=== PATIENT | male | born 1970 | race Caucasian/White ===

== ENCOUNTER 2021-05-15 12:16 | Emergency (ER) | payer SELFPAY ==
[~2021-05-15] VITALS: Ht 188 cm; Wt 131.0 kg
[2021-05-15] MEDS ORDERED: IV NORMAL SALINE 1,000ML 1,000 ML IV ONE (12:30)
[2021-05-15] MEDS ORDERED: ONDANSETRON PF 4 MG/2 ML VIAL. IVP ONE (12:30)
--- NOTE | 2021-05-15 12:34 | PHYS DOC ---
General Adult EDM: Chief Complaint: LOWER EXT PAIN HPI: HPI: Patient is a 50-year-old male being seen in the ER by EMS for left ankle pain. Patient states that he fell from standing and twisted his left ankle 10 days ago. He has a [employer] that checks up on him and gave him an ankle brace and crutches. Patient states that the [employer] checked on him today and thought that he should be evaluated for his ankle pain. Patient denies any decreased range of motion or decreased sensation to this extremity. Patient has poor hygiene and has brown splatter on his shirt and shorts. Patient states that he thought he got food poisoning yesterday because he had nausea and vomiting. He states that those symptoms have resolved today. He denies any blood in his stools or vomit, diarrhea, fevers, abdominal pain. Patient denies any current pain. He states that he has been taking ibuprofen at home for his ankle pain. Patient has poor hygiene. He is also a poor historian. Patient has a significant psychiatric history states he is not taking his medications. Pat ient denies any suicidal or homicidal ideation (INDIRA ELLIS APRN) Review of Systems: Review of Systems: 14 body systems of the review of systems have been reviewed. See HPI for pertinent positive and negative responses, otherwise all other systems are negative, nonpertinent or noncontributory (INDIRA ELLIS APRN) Physical Exam: PE: Constitutional: Well developed, well nourished, no acute distress, non-toxic appearance. [] HENT: Normocephalic, atraumatic, bilateral external ears normal, oropharynx moist, no oral exudates, nose normal. [] Eyes: PERRLA, EOMI, conjunctiva normal, no discharge. [] Neck: Normal range of motion, no tenderness, supple, no stridor. [] Cardiovascular:Heart rate regular rhythm, no murmur [] Lungs & Thorax: Bilateral breath sounds clear to auscultation [] Abdomen: Bowel sounds normal, soft, no tenderness, no masses, no pulsatile masses. [] Skin: Warm, dry, no erythema, no rash. [] Back: No tenderness, no CVA tenderness. [] Extremities: No tenderness, no cyanosis, no clubbing, ROM intact, no edema. [] Neurologic: Alert and oriented X 3, normal motor function, normal sensory function, no focal deficits noted. [] Psychologic: Affect normal, judgement normal, mood normal. [] (INDIRA ELLIS APRN) EKG: EKG: EKG performed by ER staff at 1339 shows sinus tach at a rate of 118, no STEMI read by Dr. Zuniga at 1359. [] (INDIRA ELLIS APRN) Radiology/Procedures: Radiology/Procedures: PROCEDURE: ANKLE LEFT 3V Left ankle 3 views. HISTORY: Fall, bruising through ankle 3 views were taken of the left ankle. There is not evidence of an acute fracture or osseous abnormality. There is prominent spurring on the calcaneus. IMPRESSION: 1. No acute fracture noted in the left ankle. Electronically signed by: Vadim Beltrán MD (05/15/2021 12:49 PM) [id number] DICTATED AND SIGNED BY: VADIM BELTRÁN MD DATE: 05/15/21 1248 CC: INDIRA ELLIS APRN ~MTH0 0 [] (INDIRA ELLIS APRN) Impressions: [place] [address] IMAGING REPORT Signed PATIENT: DANY GARRIDO ACCOUNT: [id number] : 1970 LOCATION: ER AGE: 50 SEX: M EXAM STATUS: PRE ER ORD. PHYSICIAN: INDIRA ELLIS APRN REASON: leukocytosis, n/v, coffee ground emesis - omni 300 75ml iv PROCEDURE: CT ABD PELV W/ IV CONTRST ONLY CT abdomen and pelvis with contrast PQRS statement: CT scans at this facility use dose reduction including either automated exposure control, iterative reconstructions, and /or weight based radiation dosing via mA and kV modification when appropriate to reduce radiation dose to as low as reasonably achievable. HISTORY: Leukocytosis, nausea and vomiting, coffee-ground emesis. Contrast: 75 mL of opaque 300 intravenous contrast. Abdomen findings: Tiny dependent pleural effusions. Tiny liver dome is outside [id number]. There is gallbladder distention and gallbladder wall edema and surrounding pericholecystic edema extending into the leland hepatis as well as surrounding the hepatic flexure and descending duodenum consistent with cholecystitis. Kidneys, adrenals, liver, pancreas, spleen unremarkable. Appendix is negative. No bowel obstruction. No adenopathy. Bones are unremarkable. Pelvis findings: Miniscule volume of dependent pelvic free fluid. Bladder, prostate, rectum and bones are unremarkable. IMPRESSION: 1. Acute cholecystitis with distention and edema of the gallbladder. 2. The appendix is negative. 3. Tiny dependent bilateral pleural effusions at the lung bases. Electronically signed by: Alvarez Horton MD (05/15/2021 3:02 PM) [facility] DICTATED AND SIGNED BY: ALVAREZ HORTON MD DATE: 05/15/21 1457 CC: DANY ZUNIGA MD; INDIRA ELLIS APRN ~MTH0 0 (DANY ZUNIGA MD) Heart Score: C/O Chest Pain: No Risk Factors: Risk Factors: DM, Current or recent (<one month) smoker, HTN, HLP, family history of CAD, obesity. Risk Scores: Score 0 - 3: 2.5% MACE over next 6 weeks - Discharge Home Score 4 - 6: 20.3% MACE over next 6 weeks - Admit for Clinical Observation Score 7 - 10: 72.7% MACE over next 6 weeks - Early Invasive Strategies (INDIRA ELLIS APRN) Course & Med Decision Making: Course & Med Decision Making Pertinent Labs and Imaging studies reviewed. (See chart for details) [] Patient is a 50-year-old male being seen in the ER for multiple complaints.Twisted his ankle 10 days ago and is having pain to the lateral aspect of his left ankle. An x-ray was performed of this ankle and it was negative for any acute findings. Patient advised to continue wearing the ankle brace and using crutches as needed. Patient also advised to take Tylenol and apply ice. Patient states that he had nausea and vomiting yesterday that he believes was due to food poisoning. He denies any current GI complaints. He is noted to be tachycardic in the ER. Vomit on patient's clothing is concerning for coffee-ground emesis. I notified patient that because of this I'm concerned that maybe he is having some GI bleeding and that I would like to perform blood work as well as administer IV fluids to help with his tachycardia. Patient states that he is very scared of needles and is refusing blood work and an IV at this time. Patient p.o. challenge and he is tolerating fluids. Patient is alert and oriented x4. Patient notified that his ankle x-ray was negative for any acute findings. His ankle was placed in a wrap, he was educated to adjust the wrap as needed for comfort and swelling. Patient given properly sized crutches. Dr. Zuniga spoke to patient and he is agreeable to stay for blood work and IV fluids and nausea medication. Patient was noted to have leukocytosis with a white blood cell count of 21.3. He had elevated LFTs. His CT scan of his abdomen and pelvis showed acute cholecystitis. I spoke with Dr. Gómez at [facility] general surgery group and he agreed to see the patient at [facility]. I spoke to Dr. Fernandez who is a hospitalist at [facility] who agreed to accept the patient under his services. I spoke with patient about his findings and the need to transfer to [facility] for surgery. Patient states that he does not want to do that and that he will "pray on it". Patient states that he is afraid to have surgery. I attempted to ease patient's mind by describing the surgery for him and informing him of the benefits of receiving the surgery and the risks of not receiving the surgery.Patient states that "God is going to cure him". Patient is alert and oriented and has repeated back the findings in the ER of an infected gall bladder and that we are recommending transfer for surgery and that without surgery the greatest risk would be . He will be discharged home with antibiotics which he did agree to fill and take. AMA paper signed. (INDIRA ELLIS APRN) Course & Med Decision Making Attending addendum: Agree with documentation. I discussed with the patient his diagnosis of acute cholecystitis and need for IV antibiotics and surgery for an extended period of time. He states that he did not wish to go because he is scared, and because he "has charles" and "God will heal me" I expressed to him multiple times the need for intervention and his high risk for decompensation and even . He does have a history of schizophrenia, but has been on a stable dose of risperidone and does seem to comprehend the situation and follows conversation in a logical and linear manner. He was able to repeat back to me multiple times that he has a gallbladder infection and was able to repeat my recommendations as well as the stated risks of not treating his condition. He was able to tell me his name, date of , the situation, and the current date. He did seem to comprehend that he could become a very seriously ill and even from the situation. Therefore I do feel that he had capacity to refuse care at this time. I don't feel that I can hold him against his will to receive medical treatment. He did agree to take p.o. antibiotics which were sent to his pharmacy. I asked him to please reconsider and to present to [facility] or back here at [facility] should he change his mind or if his condition worsens. (DANY ZUNIGA MD) Christo Disclaimer: Christo Disclaimer: This electronic medical record was generated, in whole or in part, using a voice recognition dictation system. (INDIRA ELLIS DRUM BUILDER) Departure Departure: Impression: Primary Impression: Ankle sprain Qualified Codes: S93.402A - Sprain of unspecified ligament of left ankle, initial encounter Additional Impression: Acute cholecystitis Disposition: LEFT AGAINST MEDICAL ADVICE Condition: GUARDED Patient Instructions: Ankle Sprain, Cholecystitis Additional Instructions: You were seen in the ER today for ankle pain. An x-ray was performed and it was negative for any acute findings. Please continue to use the ankle wrap as needed. You can take Tylenol for any pain at home. Apply ice and elevate your leg. You can adjust this wrap as needed for comfort and swelling. If you develop increased swelling, worsening of your pain, decreased range of motion please return to the ER. You were noted to have acute cholecystitis which is infection of your gallbladder. As we discussed, treatment for this is surgery. You declined to be transferred to [facility] for surgery. As I stated previously, my recommendation is for you to be transferred to [facility] for surgery for your infected gallbladder. Not being transferred for surgery could result in worsening of your condition and . We are sending in a prescription for antibiotics for you to take.Do not take these with alcohol. Please start and finish these completely. Follow-up with your primary care provider on Tuesday regarding your ER visit. Please return to the ER immediately if you develop persistent/worsening of your belly pain, intractable nausea or vomiting, high fevers refractory to treatment, chest pain, shortness of breath, blood in your stools or vomit or any new or worsening concerns. EMERGENCY DEPARTMENT GENERAL DISCHARGE INSTRUCTIONS Thank you for coming to [facility] (ED) today and trusting us with you care. We trust that you had a positivie experience in our Emergency Department. If you wish to speak to the department management, you may call the director at [phone]. YOUR FOLLOW UP INSTRUCTIONS ARE FOLLOWS: 1. Do you have a private Doctor? If you do not have a private doctor, please ask for a resource list of physicians or clinics that may be able to assist you with follow up care. 2. The Emergency Physician has interpreted your x-rays. The X-Ray specialist will also review them. If there is a change in the findings, you will be notified in 48 hours when at all possible. 3. A lab test or culture has been done, your results will be reviewed and you will be notified if you need a change in treatment. ADDITIONAL INSTRUCTIONS AND INFORMATION: 1. Your care today has been supervised by a physician who is specially trained in emergency care. Many problems require more than one evaluation for a complete diagnosis and treatment. We recommend that you schedule your follow up appointment as recom mended to ensure complete treatment of you illness or injury. If you are unable to obtain follow up care and continue to have a problem, or if your condition worsens, we recommend that you return to the ED. 2. We are not able to safely determine your condition over the phone nor are we able to give sound medical advice over the phone. For these safety reasons, if you call for medical advice we will ask you to come to the ED for further evaluation. 3. If you have any questions regarding these discharge instructions please call the ED at [phone]. SAFETY INFORMATION: In the interest of safety, wellness, and injury prevention; we encourage you to wear your sealbelt, if you smoke; quite smoking, and we encourage family to use a protective helmet for bicycling and other sporting events that present an increased risk for head injury. IF YOUR SYMPTOMS WORSEN OR NEW SYMPTOMS DEVELOP, OR YOU HAVE CONCERNS ABOUT YOUR CONDITION; OR IF YOUR CONDITION WORSENS WHILE YOU ARE WAITING FOR YOUR FOLLOW UP APPOINTMENT; EITHER CONTACT YOUR PRIMARY CARE DOCTOR, THE PHYSICIAN WHOSE NAME AND NUMBER YOU WERE GIVEN, OR RETURN TO THE ED IMMEDIATELY. Scripts Metronidazole (METRONIDAZOLE) 500 Mg Tablet 1 TAB PO TID for abdominal infection for 10 Days, #30 TAB 0 Refills Prov: INDIRA ELLIS APRN 05/15/21 Ciprofloxacin Hcl (CIPROFLOXACIN HCL) 500 Mg Tablet 1 TAB PO BID for abdominal infection for 10 Days, #20 TAB 0 Refills Prov: INDIRA ELLIS APRN 05/15/21 INDIRA ELLIS APRN May 15, 2021 12:34 DANY ZUNIGA MD May 15, 2021 16:49
[2021-05-15] MEDS ORDERED: ONDANSETRON PF 4 MG/2 ML VIAL. ONE (12:37)
[2021-05-15] MEDS ORDERED: ONDANSETRON ODT 4 MG TAB.RAPDIS PO ONE (12:45)
--- NOTE | 2021-05-15 12:51 | RAD ---
Left ankle 3 views. HISTORY: Fall, bruising through ankle 3 views were taken of the left ankle. There is not evidence of an acute fracture or osseous abnormali ty. There is prominent spurring on the calcaneus. IMPRESSION: 1. No acute fracture noted in the left ankle. Electronically signed by: Vadim Beltrán MD (05/15/2021 12:49 PM) [id number]
--- NOTE | 2021-05-15 13:50 | EKG ---
[address] [address] Test Date: 2021-05-15 Test Time: 13:39:18 Pat Name: DANY GARRIDO Department: Room: Gender: M Associate Professor Of Law: INDIRA : 1970 Requested By: INDIRA ELLIS Order Number: [id number] Reading MD: Measurements Intervals [place] Rate: 118 P: 17 ND: 144 QRS: 41 QRSD: 90 T: 54 QT: 358 QTc: 504 Interpretive Statements SINUS TACHYCARDIA R-S TRANSITION ZONE IN V LEADS DISPLACED TO THE LEFT NO SPECIFIC ECG ABNORMALITIES RI6.02 No previous ECG available for comparison
[2021-05-15 14:00] LABS: BASO % 0 % (0-3); EOS % 0 % (0-3); HEMATOCRIT 43.3 % (39.0-53.0); HEMOGLOBIN 14.6 g/dL (13.0-17.5); LYMPH # 1.1 x10^3/uL (1.0-4.8); LYMPH % 5 % (24-48); MEAN CORPUSCULAR HEMOGLOBIN 28 pg (25-35); MEAN CORPUSCULAR HGB CONC 34 g/dL (31-37); MEAN CORPUSCULAR VOLUME 84 fL (79-100); MONO % 5 % (0-9); NEUT # 19.1 x10^3uL (1.8-7.7); NEUT % 90 % (31-73); PLATELET COUNT 366 x10^3/uL (140-400); RED BLOOD COUNT 5.13 x10^6/uL (4.30-5.70); RED CELL DISTRIBUTION WIDTH 13.7 % (11.5-14.5); WHITE BLOOD COUNT 21.3 x10^3/uL (4.0-11.0)
[2021-05-15 14:10] LABS: CREATININE 1.1 mg/dL (0.7-1.3); GFR 71.4; POTASSIUM 3.6 mmol/L (3.5-5.1)
[2021-05-15 14:16] LABS: ALBUMIN 3.5 g/dL (3.4-5.0); ALBUMIN/GLOBULIN RATIO 0.9 (1.0-1.7); TOTAL BILIRUBIN 1.2 mg/dL (0.2-1.0); TOTAL PROTEIN 7.5 g/dL (6.4-8.2)
[2021-05-15] MEDS ORDERED: IOHEXOL 300 MG/ML 75 ML VIAL. IV ONE (14:30)
--- NOTE | 2021-05-15 15:04 | RAD ---
CT abdomen and pelvis with contrast PQRS statement: CT scans at this facility use dose reduction including either automated exposure cont rol, iterative reconstructions, and /or weight based radiation dosing via mA and kV modification when appropriate to reduce radiation dose to as low as reasonably achievable. HISTORY: Leukocytosis, nausea and vomiting, coffee-ground emesis. Contrast: 75 mL of opaque 300 intravenous contrast. Abdomen findings: Tiny dependent pleural effusions. Tiny liver dome is outside [id number]. There i s gallbladder distention and gallbladder wall edema and surrounding pericholecystic edema extending i nto the leland hepatis as well as surrounding the hepatic flexure and descending duodenum consistent w ith cholecystitis. Kidneys, adrenals, liver, pancreas, spleen unremarkable. Appendix is negative. No bowel obstruction. No adenopathy. Bones are unremarkable. Pelvis findings: Miniscule volume of dependent pelvic free fluid. Bladder, prostate, rectum and bones are unremarkable. IMPRESSION: 1. Acute cholecystitis with distention and edema of the gallbladder. 2. The appendix is negative. 3. Tiny dependent bilateral pleural effusions at the lung bases. Electronically signed by: Sher Ernst MD (05/15/2021 3:02 PM) [facility]
[2021-05-15] MEDS ORDERED: PIPERACILLIN/TAZOBACTAM 4.5 GM in IV NORMAL SALINE 50ML 50 ML IV ONE (15:45)
[2021-05-15] MEDS ORDERED: IV NORMAL SALINE 50ML 50 ML ONE (16:11)
[2021-05-15] MEDS ORDERED: PIPERACILLIN/TAZOBACTAM 4.5 GM VIAL IV ONE (16:11)
[2021-05-15] MEDS ORDERED: METR-34 PO (16:12)
[2021-05-15] MEDS ORDERED: CIPR500T2 PO (16:12)
[2021-05-15 16:20] VITALS: BP 130/65
[2021-05-15 17:58] LABS: % ATYL 1 % (0-0); % BANDS 1 % (0-9); % LYMPHS 5 % (24-48); % MONOS 4 % (0-10); % SEGS 89 % (35-66); PLATELET CLUMP PRESENT
[2021-05-15 17:59] LABS: PLT ESTIMATE ADEQUATE (ADEQUATE)
== END 2021-05-15 16:27 | disposition left against medical advice (07) ==
LOC: ER 12:16
DX: S93.402A Sprain of unspecified ligament of left ankle, initial encounter (principal); K81.0 Acute cholecystitis; W18.30XA Fall on same level, unspecified, initial encounter; Y93.89 Activity, other specified; Y92.89 Other specified places as the place of occurrence of the external cause; Y99.8 Other external cause status
CPT/HCPCS: 36415; 73610; 74177; 80053; 85007; 85025; 93005; 99285; Q0162; Q9967